=== PATIENT | female | born 1975 | race Caucasian/White ===

== ENCOUNTER 2016-10-17 16:00 | Emergency (ER) | payer SELFPAY ==
--- NOTE | 2016-10-17 16:34 | ED Physician Documentation ---
General Adult - HISTORIAN Historian: patient - HPI Stated Complaint: anxiety attack Chief Complaint: General Adult Onset: hours (2 1/2 hours) Timing: still present Further Comments: yes (Patient feels that she is having a panic attack. Last one was 1 month ago and last Jan. No precipitating factors noted. Patient feels that heart is racing, having some tingling in her hands. States that she does feel that she has been under more stress recently) - ROS CONST: no problems - PAST HX Past History: other (seizure disorder in the past) Other History: none, CVA Surgeries/Procedures: none Immunizations: referred to PCP Allergies/Adverse Reactions: Allergies Allergy/AdvReac Type Severity Reaction Status Date / Time No Known Allergies Allergy Verified 10/17/16 16:13 Home Medications: Ambulatory Orders Medication Instructions Recorded NK [NK] 10/17/16 - SOCIAL HX Smoking History: less than 1 pack/day (1/2 ppd) Alcohol Use: sober Drug Use: none - FAMILY HX Family History: Yes - VITAL SIGNS Vital Signs: Vital Signs Temp Pulse Resp BP Pulse Ox 98.2 F 104 H 26 H 112/74 100 10/17/16 16:15 10/17/16 16:15 10/17/16 16:15 10/17/16 16:15 10/17/16 16:15 - REVIEWED ASSESSMENTS Nursing Assessment Reviewed: Yes Vitals Reviewed: Yes Progress - Progress Progress: 17:43 Patient states that she was feeling better post Buspar; feels that she is starting to have sensation that her heart is beating fast (pulse 82). Feels anxious. 18:40 Patient states that she is felling better and believes that she can manage at home. General Adult Physical Exam - PHYSICAL EXAM GENERAL APPEARANCE: mild distress EENT: eye inspection normal, ENT inspection normal, pharynx normal, no signs of dehydration NECK: normal inspection, thyroid normal, supple. No: lymphadenopathy RESPIRATORY: no resp distress, chest non-tender, breath sounds normal. No: wheezes, rales, rhonchi CVS: reg rate & rhythm, heart sounds normal, equal pulses, no murmur, no gallop ABDOMEN: soft, no organomegaly, normal bowel sounds, no abdominal bruit, no distension, non-tender BACK: normal inspection, no CVA tenderness SKIN: warm/dry, normal color EXTREMITIES: non-tender, normal range of motion NEURO: oriented X3, CN's nml as tested, motor nml, sensation nml, mood/affect nml, cognition normal, other (does seem to be having some mild anxiety issues) Discharge Clincal Impression: Anxiety Referrals: Primary Doctor,Amanda [Primary Care Provider] - 2 Days Additional Instructions: Home and rest. See your primary care provider about further treatment options. Take Ativan as needed for anxiety/panic attacks. Try to start exercising to see if that will help with symptoms. Home Medications: Ambulatory Orders NK [NK] 10/17/16 Condition: Stable Disposition: 01 HOME, SELF-CARE Decision to Admit: NO Date of Decison to Admit: 10/17/16 Decision Time: 18:37
[2016-10-17] MEDS ORDERED: BUSPIRONE HCL 5 MG TABLET PO ONE (16:41)
[2016-10-17] MEDS ORDERED: LORazepam 1 MG TABLET PO ONE (17:53)
[2016-10-17 18:53] VITALS: BP 101/58
== END 2016-10-17 18:48 | disposition home or self-care (01) ==
LOC: ED 16:00
DX: F41.9 Anxiety disorder, unspecified (principal); F17.210 Nicotine dependence, cigarettes, uncomplicated
CPT/HCPCS: 99283